=== PATIENT | female | born 1955 | race American Indian/Alaskan Native ===

== ENCOUNTER 2021-03-16 08:15 | Outpatient (CLI) | payer BC ==
--- NOTE | 2021-03-16 10:29 | Treadmill Report ---
DATE OF SERVICE: 03/16/2021 TREADMILL STRESS TEST The patient exercised for 8 minutes and 30 seconds of a Corey protocol, reaching stage 3 and achieving 9.5 METs. Peak heart rate was 148. Peak blood pressure was 175 systolic. There was no chest pain. Test was stopped for fatigue. Baseline ECG was normal sinus rhythm. With exercise, there were no ST changes of ischemia. No significant dysrhythmias were noted. CONCLUSION: 1. Good exercise capacity. 2. No chest pain. 3. No ST changes of ischemia. 4. No significant dysrhythmias. This is a normal exercise ECG test. TID: [id number] RECEIPT: [id number] CA/CASSIE cc: DEBO ADAMSON MD
== END 2021-03-16 08:16 | disposition home or self-care (01) ==
LOC: CARD 08:15
PROVIDERS: ATTEND Internal Medicine Cardiovascular Disease
DX: Z01.810 Encounter for preprocedural cardiovascular examination (principal)
CPT/HCPCS: 93017